=== PATIENT | male | born 1935 | race Caucasian/White ===

== ENCOUNTER 2019-03-13 16:05 | Inpatient (IN) | payer MEDICARE, MEDICAID ==
--- NOTE | 2019-03-13 16:24 | ED Physician Chart ---
ED Chief Complaint/HPI - Patient Information Date Seen:: 03/13/19 Time Seen:: 16:05 Chief Complaint:: Fever History of Present Illness:: onset x 3 days of fever, cough, and congestion; no report of trauma, H/As, S/T, neck pain, C/P, SOB, Abd. Pain, A/N/V/D/C, chills, or urinary s/s Allergies:: Allergies Allergy/AdvReac Type Severity Reaction Status Date / Time isosorbide [From Isordil] Allergy Verified 03/13/19 16:15 Historian:: Patient, EMS Review:: Nurse's Note Reviewed, Old Chart Reviewed, EMS run form Reviewed ED Review of Systems - Review of Systems General/Constitutional: Fever, No chills, No weight loss, Weakness, No diaphoresis, No edema, No loss of appetite Skin: No skin lesions, No rash, No bruising Head: No headache, No light-headedness Eyes: No loss of vision, No pain, No diplopia ENT: No earache, Nasal drainage, No sore throat, No tinnitus Neck: No neck pain, No swelling, No thyromegaly, No stiffness, No mass noted Cardio Vascular: No chest pain, No palpitations, No PND, No orthopnea, No edema Pulmonary: No SOB, Cough, No sputum, No wheezing GI: No nausea, No vomiting, No diarrhea, No pain, No melena, No hematochezia, No constipation, No hematemesis G/U: No dysuria, No frequency, No hematuria, No nacturia Musculoskeletal: No bone or joint pain, No back pain, No muscle pain Endocrine: No polyuria, No polydipsia Psychiatric: Prior psych history, Depression, Anxiety, No suicidal ideation, No homicidal ideation, No auditory hallucination, No visual hallucination Hematopoietic: No bruising, No lymphadenopathy Allergic/Immuno: No urticaria, No angioedema Neurological: No syncope, No focal symptoms, Weakness, No paresthesia, No headache, No seizure, No dizziness, Confusion, No vertigo ED Past Medical History - Past Medical History Obtainable: Yes Past Medical History: HTN, CAD, Dyslipidemia, Dementia Family History: HTN Social History: Non Smoker, No Alcohol, No Drug Use, , Care Facility Surgical History: None Psychiatricy History: Depression, Bipolar, Dementia Medication: Reviewed ED Physical Exam - Physical Examination General/Constitutional: Awake, Well-developed, well-nourished, Alert, No distress, GCS 15, Non-toxic appearing, Ambulatory Head: Atraumatic Eyes: Lids, conjuctiva normal, PERRL, EOMI Skin: Nl inspection, No rash, No skin lesions, No ecchymosis, Well hydrated, No lymphadenopathy ENMT: External ears, nose nl, TM canals nl, Nasal exam nl, Lips, teeth, gums nl , Oropharynx nl, Tonsils nl Neck: Nontender, Full ROM w/o pain, No JVD, No nuchal rigidity, No bruit, No mass, No stridor Other Neck comments:: supple; no meningeal signs; no cervical tenderness Respiratory: Nl effort/Exclusion Other Respiratory comments:: Lungs: + Rales and Rhonchi Cardio Vascular: RRR, No murmur, gallop, rubs, NL S1 S2, Carotid/Femoral/Distal pulses equal bilaterally GI: No tenderness/rebounding/guarding, No organomegaly, No hernia, Normal BS's, Nondistended, No mass/bruits, No McBurney tenderness, Rectum exam nl Other GI comments:: no pulsatile masses : No CVA tenderness Extremities: No tenderness or effusion, Full ROM, normal strength in all extremities, No edema, Normal digits & nails Neuro/Psych: Alert/oriented, DTR's symmetric, Normal sensory exam, Normal motor strength, Judgement/insight normal, Mood normal, Normal gait, No focal deficits Misc: Normal back, No paraspinal tenderness ED Labs/Radiology/EKG Results - Lab Results Comments:: Reviewed - Radiology Results Comments:: CXR: + LLL Haziness suggestive of early infiltrate - EKG Interpretations EKG Time:: 16:16 Rate & Rhythm: 65; NSR Comments:: non-specific st-t changes ED Septic Shock - . Is Septic Shock (SBP<90, OR Lactate>4 mmol\L) present?: No ED Reassessment (Disposition) - Reassessment Reassessment Condition:: Improved - Diagnosis Diagnosis:: Cough; Fever; Congestion; Hypoalbuminemia; Pneumonia; Sepsis; Hyponatremia - Aftercare/Follow up Instructions Aftercare/Follow-Up Instructions:: Counseled pt regarding lab results/diagnosis & need follow up, Counseled pt & family regarding lab results/diagnosis & need follow up - Patient Disposition Discharge/Transfer:: Acute Care w/in this hosp Accepting Physician:: Dr. Sampson Time Called:: 0645 Time Responded:: 17:30 Admitted to:: Med/Surg Spoke to:: Dr. Sampson Admitting Medical Physician:: Dr. Sampson Condition at Disposition:: Stable, Improved
[2019-03-13 16:37] LABS: % BASOPHILS 0.1 % (0.0-2.0); % EOSINOPHILS 1.5 % (0.0-5.0); % LYMPHOCYTES 13.6 % (20.0-50.0); % MONOCYTES 10.2 % (2.0-10.0); % NEUTROPHILS 74.6 % (40.0-80.0); EOSINOPHILE ABSOLUTE 0.1 Th/cmm (0.1-0.4); HEMATOCRIT 38.6 % (41.0-60); HEMOGLOBIN 12.8 gm/dL (12-16); LYMPHOCYTE ABSOLUTE 1.2 Th/cmm (1.5-3.0); MEAN CELL VOLUME 93.1 fl (80-99); MEAN CORPUSCULAR HEMOGLOBIN 30.9 pg (27.0-31.0); MEAN CORPUSCULAR HGB CONC 33.2 pg (28.0-36.0); MEAN PLATELET VOLUME 6.1 fl; MONOCYTE ABSOLUTE 0.9 Th/cmm (0.3-1.0); NEUTROPHILE ABSOLUTE 6.7 Th/cmm (1.8-8.0); PLATELET COUNT 195 Th/cmm (150-400); RED BLOOD COUNT 4.14 Mil/cmm (3.80-5.80); RED CELL DISTRIBUTION WIDTH 13.3 % (11.5-20.0); WHITE BLOOD COUNT 8.9 Th/cmm (4.8-10.8)
[2019-03-13 16:51] LABS: PROTHROMBIN TIME (TEST) 10.4 SECONDS (9.5-11.5)
[2019-03-13 16:52] LABS: ALB/GLOB RATIO 1.1 (1.0-1.8); ALBUMIN 3.5 gm/dL (4.2-5.5); ALKALINE PHOSPHATASE 81 U/L (34-104); ANION GAP 11.3 (7.0-16.0); BILIRUBIN,TOTAL 0.3 mg/dL (0.3-1.0); BUN - UREA NITROGEN 17 mg/dL (7-25); CALCIUM SERUM 8.9 mg/dL (8.6-10.3); CARBON DIOXIDE 26.7 mEq/L (21.0-31.0); CHLORIDE 101 mEq/L (98-107); CREATININE KINASE 24 U/L (30-223); GLUCOSE 107 mg/dL (70-105); SGOT 15 U/L (13-39); SGPT/ALT 22 U/L (7-52); SODIUM SERUM 135 mEq/L (136-145); TOTAL PROTEIN,SERUM 6.7 gm/dL (6.0-8.3)
[2019-03-13 16:56] LABS: TROP I < 0.01 ng/mL (0.01-0.05)
[2019-03-13 17:01] LABS: URINE SOURCE MIDSTREAM
[2019-03-13 17:04] LABS: URINE BILIRUBIN NEGATIVE (NEGATIVE); URINE BLOOD NEGATIVE (NEGATIVE); URINE GLUCOSE (UA) NEGATIVE (NEGATIVE); URINE KETONE NEGATIVE (NEGATIVE); URINE LEUKOCYTE ESTERASE NEGATIVE (NEGATIVE); URINE NITRATE NEGATIVE (NEGATIVE); URINE PH 6.5 (4.6 - 8.0); URINE PROTEIN NEGATIVE (NEGATIVE)
[2019-03-13 17:08] LABS: URINE CLARITY CLEAR (CLEAR); URINE COLOR YELLOW; URINE MICROSCOPIC INDICATED? YES
[2019-03-13] MEDS ORDERED: Levofloxacin 500mg/100mL 500 MG/100 ML BAG IV ONE ×2 (17:13→17:23)
[2019-03-13 17:24] LABS: URINE BACTERIA 1+ /hpf (NONE SEEN); URINE EPITHELIAL CELLS MODERATE /lpf (FEW); URINE RBC 0-2 /hpf (0-5)
--- NOTE | 2019-03-13 23:28 | History & Physical ---
ADMIT DATE: 03/13/2019 HISTORY OF PRESENT ILLNESS: The patient came from the [facility], apparently 3 days of fever with chills, chest congestion, complaining of pleuritic pain and shortness of breath, where he was found to have pneumonia, was admitted from the ER. The patient does not have any fever, chills, rigors. No complaints of any chest pain, pleuritic pain. PAST MEDICAL HISTORY: History of hypertension, coronary artery disease, hyperlipidemia, and dementia. PHYSICAL EXAMINATION: HEAD: Normal. ENT: Normal. NECK: Supple, nontender. LUNGS: Bilateral rales. CARDIOVASCULAR SYSTEM: S1, S2 heard. ABDOMEN: Soft. Bowel sounds are heard. CENTRAL NERVOUS SYSTEM: The patient was mildly confused. LABORATORY DATA: Chest x-ray showed left lower lobe infiltrate. EKG showed a sinus rhythm and rate was 60. DIAGNOSES: Acute left lower lobe pneumonia, hypoalbuminemia, malnutrition, cough, sepsis, and hyponatremia was made. PLAN: The patient is being admitted and I will Dr. Chow for ID consult and we will also have Pulmonary consult, Dr. Sharma and I will treat with IV antibiotics and currently hyponatremia. JOB# [id number]
[2019-03-14] MEDS ORDERED: Morphine Sulfate 2 mg/mL 1mL Syr IVP PRN (00:15)
[2019-03-14] MEDS: D5-0.45NS 1,000 ML IV SCH ×2 (00:35→20:30)
[2019-03-14] MEDS: Morphine Sulfate 2 mg/mL 1mL Syr IVP PRN ×2 (00:38→18:02)
[2019-03-14] MEDS ORDERED: Guaifenesin DM 10 ML UDC PO PRN (03:48)
--- NOTE | 2019-03-14 04:21 | Consultation ---
DATE OF CONSULTATION: 03/13/2019 INFECTIOUS DISEASE CONSULTATION REFERRING PHYSICIAN: Duane Sampson M.D. REASON FOR CONSULTATION: Pneumonia. HISTORY OF PRESENT ILLNESS: The patient is an 83-year-old male with a past medical history of hypertension, coronary artery disease, hyperlipidemia, and dementia, brought to the ER for cough, congestion with fever and chills. The patient also complained of pleuritic chest pain bilaterally. It was associated with some shortness of breath. On initial evaluation, the patient's temperature was 98.7 degrees Fahrenheit and WBC count was 8900. As per the ER report, chest x-ray showed left lower lobe infiltrate. ID consult was called for further antibiotic management. Meanwhile, the patient was started on levofloxacin. PAST MEDICAL HISTORY: Includes hypertension, coronary artery disease, hyperlipidemia, and dementia. MEDICATIONS: As per medication reconciliation sheet. Antibiotic banerjee, the patient is on levofloxacin. ALLERGIES: ISOSORBIDE. SOCIAL HISTORY: The patient lives in a nursing facility. No history of smoking, alcohol, or drug use. FAMILY HISTORY: Not available. REVIEW OF SYSTEMS: GENERAL: The patient has had history of fever and chills, but afebrile since admission. HEENT: No diplopia, no photophobia, no sore throat. RESPIRATORY: The patient has cough and shortness of breath, which is improving. The patient also complains of bilateral pleuritic chest pain with cough. No wheezing. CARDIOVASCULAR: No chest pain. No palpitation. GASTROINTESTINAL: No nausea, no vomiting, no diarrhea, no constipation, and no abdominal pain. GENITOURINARY: No dysuria. No hematuria. NEUROLOGIC: No headache, no dizziness, and no focal weakness. PHYSICAL EXAMINATION: VITAL SIGNS: Current vital signs shows temperature is 98.1 degrees Fahrenheit, pulse is 64, respirations 20, and blood pressure is 125/66. GENERAL: The patient is comfortable, lying in the bed, not in acute distress. HEENT: Head is normocephalic, atraumatic. Oral cavity moist, pink tongue. NECK: Supple, no JVD, no carotid bruit. Trachea in midline. CHEST: Bilateral vesicular sounds. No crackles or wheezing. HEART: S1, S2 within normal limits. Regular rhythm. No murmur, no gallop. ABDOMEN: Soft, nontender, nondistended. Bowel sounds present. EXTREMITIES: No cyanosis, no clubbing, no edema. NEUROLOGIC: He is alert, awake, and oriented x 3. LABORATORY DATA: Current lab shows WBC count is 8900, hemoglobin is 12.8, hematocrit is 38.6, platelets are 195,000, neutrophils 75%. INR is 1.0. Sodium is 135, potassium is 4, chloride is 101, bicarbonate is 27, BUN is 17, creatinine is 1, and glucose is 107. Urinalysis is negative leukoesterase, negative nitrite, wbcs 2-5, and 1+ bacteria. IMAGING DATA: As per the ER report, chest x-ray showed left lower lobe infiltrate. The films are not available. IMPRESSION: 1. Acute onset of pneumonia. 2. History of hypertension. 3. Hyperlipidemia. 4. Coronary artery disease. 5. Dementia. RECOMMENDATIONS AND PLAN: We will continue Levaquin at this time. Give some cough medication. Thank you, Dr. Duane Sampson, for involving me in taking care of this patient. JOB# [id number]
[2019-03-14 06:11] LABS: % BASOPHILS 0.2 % (0.0-2.0); % EOSINOPHILS 1.3 % (0.0-5.0); % LYMPHOCYTES 13.1 % (20.0-50.0); % NEUTROPHILS 72.4 % (40.0-80.0); EOSINOPHILE ABSOLUTE 0.1 Th/cmm (0.1-0.4); HEMATOCRIT 37.7 % (41.0-60); HEMOGLOBIN 12.7 gm/dL (12-16); LYMPHOCYTE ABSOLUTE 1.1 Th/cmm (1.5-3.0); MEAN CELL VOLUME 91.7 fl (80-99); MEAN CORPUSCULAR HEMOGLOBIN 30.9 pg (27.0-31.0); MEAN CORPUSCULAR HGB CONC 33.7 pg (28.0-36.0); MEAN PLATELET VOLUME 6.5 fl; MONOCYTE ABSOLUTE 1.1 Th/cmm (0.3-1.0); PLATELET COUNT 169 Th/cmm (150-400); RED BLOOD COUNT 4.11 Mil/cmm (3.80-5.80); RED CELL DISTRIBUTION WIDTH 13.4 % (11.5-20.0); WHITE BLOOD COUNT 8.3 Th/cmm (4.8-10.8)
[2019-03-14 06:24] LABS: ANION GAP 10.4 (7.0-16.0); BUN - UREA NITROGEN 15 mg/dL (7-25); CALCIUM SERUM 8.7 mg/dL (8.6-10.3); CARBON DIOXIDE 27.8 mEq/L (21.0-31.0); CHLORIDE 102 mEq/L (98-107); GLUCOSE 109 mg/dL (70-105); POTASSIUM SERUM 4.2 mEq/L (3.5-5.1); SODIUM SERUM 136 mEq/L (136-145)
--- NOTE | 2019-03-14 08:41 | Diagnostic Imaging Report ---
CHEST X-RAY: AP view INDICATION: pain COMPARISON: None FINDINGS: Increased interstitial lung markings are noted with small left effusion. There is 4 mm left apical nodularity. Left mid to left lower lung zone subsegmental atelectasis versus scarring is noted. Borderline prominent heart is noted. Degenerative changes of the spine are noted. Postsurgical changes of the lumbar spine and right upper quadrant are partially seen. IMPRESSION: Increased interstitial lung markings probably due to chronic lung changes. Small left effusion is noted. Faint infiltrate of the left base cannot be excluded. 4 mm left apical nodularity between the left first and second ribs possibly due to superimposition of bronchovascular tissues or small pulmonary nodule such as a small granuloma. Recommend correlation with old exams and/or follow-up apical lordotic view for further assessment..
--- NOTE | 2019-03-14 11:13 | Internal Medicine Prog Note ---
Internal Medicine Subjective - Subjective Service Date: 03/14/19 Patient seen and examined:: with staff Patient is:: awake, verbal Patient Complaints of:: congestion, cough, SOB, other (Was complaining of chest pain upon admission.) Internal Medicine Objective - Results Result Diagrams: 03/14/19 05:50 03/14/19 05:50 Recent Labs: Laboratory Last Values WBC 8.3 Th/cmm (4.8-10.8) 03/14/19 05:50 RBC 4.11 Mil/cmm (3.80-5.80) 03/14/19 05:50 Hgb 12.7 gm/dL (12-16) 03/14/19 05:50 Hct 37.7 % (41.0-60) L 03/14/19 05:50 MCV 91.7 fl (80-99) 03/14/19 05:50 MCH 30.9 pg (27.0-31.0) 03/14/19 05:50 MCHC Differential 33.7 pg (28.0-36.0) 03/14/19 05:50 RDW 13.4 % (11.5-20.0) 03/14/19 05:50 Plt Count 169 Th/cmm (150-400) 03/14/19 05:50 MPV 6.5 fl 03/14/19 05:50 Neutrophils % 72.4 % (40.0-80.0) 03/14/19 05:50 Lymphocytes % 13.1 % (20.0-50.0) L 03/14/19 05:50 Monocytes % 13.0 % (2.0-10.0) H 03/14/19 05:50 Eosinophils % 1.3 % (0.0-5.0) 03/14/19 05:50 Basophils % 0.2 % (0.0-2.0) 03/14/19 05:50 PT 10.4 SECONDS (9.5-11.5) 03/13/19 16:20 INR 1.00 (0.5-1.4) 03/13/19 16:20 PTT (Actin FS) 27.9 SECONDS (26.0-38.0) 03/13/19 16:20 Sodium 136 mEq/L (136-145) 03/14/19 05:50 Potassium 4.2 mEq/L (3.5-5.1) 03/14/19 05:50 Chloride 102 mEq/L (98-107) 03/14/19 05:50 Carbon Dioxide 27.8 mEq/L (21.0-31.0) 03/14/19 05:50 Anion Gap 10.4 (7.0-16.0) 03/14/19 05:50 BUN 15 mg/dL (7-25) 03/14/19 05:50 Creatinine 1.0 mg/dL (0.7-1.3) 03/14/19 05:50 Est GFR ( Amer) TNP 03/14/19 05:50 Est GFR (Non-Af Amer) TNP 03/14/19 05:50 BUN/Creatinine Ratio 15.0 03/14/19 05:50 Glucose 109 mg/dL (70-105) H 03/14/19 05:50 Whole Bld Lactic Acid 1.30 mmol/L (0.60-1.99) 03/13/19 16:20 Calcium 8.7 mg/dL (8.6-10.3) 03/14/19 05:50 Total Bilirubin 0.3 mg/dL (0.3-1.0) 03/13/19 16:20 AST 15 U/L (13-39) 03/13/19 16:20 ALT 22 U/L (7-52) 03/13/19 16:20 Alkaline Phosphatase 81 U/L (34-104) 03/13/19 16:20 Creatine Kinase 24 U/L (30-223) L 03/13/19 16:20 Troponin I < 0.01 ng/mL (0.01-0.05) L 03/13/19 16:20 Total Protein 6.7 gm/dL (6.0-8.3) 03/13/19 16:20 Albumin 3.5 gm/dL (4.2-5.5) L 03/13/19 16:20 Globulin 3.2 gm/dL 03/13/19 16:20 Albumin/Globulin Ratio 1.1 (1.0-1.8) 03/13/19 16:20 Urine Source MIDSTREAM 03/13/19 17:00 Urine Color YELLOW 03/13/19 17:00 Urine Clarity CLEAR (CLEAR) 03/13/19 17:00 Urine pH 6.5 (4.6 - 8.0) 03/13/19 17:00 Ur Specific Young 1.010 (1.005-1.030) 03/13/19 17:00 Urine Protein NEGATIVE mg/dL (NEGATIVE) 03/13/19 17:00 Urine Glucose (UA) NEGATIVE mg/dL (NEGATIVE) 03/13/19 17:00 Urine Ketones NEGATIVE mg/dL (NEGATIVE) 03/13/19 17:00 Urine Blood NEGATIVE (NEGATIVE) 03/13/19 17:00 Urine Nitrate NEGATIVE (NEGATIVE) 03/13/19 17:00 Urine Bilirubin NEGATIVE (NEGATIVE) 03/13/19 17:00 Urine Urobilinogen 1.0 E.U./dL (0.2 - 1.0) 03/13/19 17:00 Ur Leukocyte Esterase NEGATIVE (NEGATIVE) 03/13/19 17:00 Urine RBC 0-2 /hpf (0-5) H 03/13/19 17:00 Urine WBC 2-5 /hpf (0-5) 03/13/19 17:00 Ur Epithelial Cells MODERATE /lpf (FEW) 03/13/19 17:00 Urine Bacteria 1+ /hpf (NONE SEEN) H 03/13/19 17:00 - Physical Exam Vitals and I&O: Vital Signs Temp 96.7 F 03/14/19 07:24 Pulse 75 03/14/19 07:24 Resp 20 03/14/19 08:00 BP 128/67 03/14/19 07:24 Pulse Ox 91 03/14/19 07:24 Intake & Output 03/13/19 03/14/19 03/14/19 18:59 06:59 18:59 Intake Total 100 Balance 100 Weight (lbs) 88.451 kg 88.451 kg 88.451 kg Intake: Intake, IV Amount 100 Levofloxacin 500mg/100mL 100 500 mg In 100 ml @ 100 mls/hr IV X1 ONE Rx#: [id number] Other: # Voids 1 2 # Bowel Movements 0 0 Weight Source Bedscale Bedscale Bedscale Active Medications: Current Medications Guaifenesin/Dextromethorphan (Robitussin Dm) 10 ml PO Q6HR PRN PRN Reason: Cough Stop: 05/13/19 03:47 Levofloxacin (Levaquin Pb) 500 mg in 100 mls @ 100 mls/hr IV Q24HR ED[facility]IE Stop: 05/13/19 15:59 Dextrose/Sodium Chloride (D5-0.45ns) 1,000 mls @ 50 mls/hr IV .Q20H EDDIE Stop: 05/13/19 00:59 Last Admin: 03/14/19 00:35 Dose: 50 mls/hr Morphine Sulfate (Morphine) 2 mg IVP Q4HR PRN PRN Reason: MODERATE TO SEVERE PAIN Stop: 05/13/19 00:13 Last Admin: 03/14/19 00:38 Dose: 2 mg Morphine Sulfate (Morphine) 1 mg IVP Q4HR PRN PRN Reason: MILD TO MODERATE PAIN Stop: 05/13/19 00:14 Ondansetron HCl (Zofran Odt) 4 mg PO Q6H PRN PRN Reason: Nausea / Vomiting Stop: 05/13/19 00:17 Physical Exam: 83 y/o male patient was admitted with complaints of cough,sob and chest pain. Patient was diagnosed with Pneumonia and is currently on Levaquin and on Pulmonary support. General: weak, congested, demented HEENT: NC/AT Neck: Supple, + trach Lungs: congested, rales, ronchi Cardiovascular: RRR, Normal S1 Abdomen: soft, non-tender Extremities: clear Neurological: lethargic Internal Medicine Assmt/Plan - Assessment Assessment: Acute pneumonia. History of HTN. Hyperlipidemia. Coronary Artery Disease. Dementia. - Plan Plan: Continuation of care. Monitor Vitals, Labs- CBC, CMP, Monitor Hemoglobin levels, Sputum culture and Chest x-ray. Continue present meds as directed. Respiratory treatments and Pulmonary support. Supplemental Oxygen. Aspiration precaution. Deep suctioning prn. Monitor Diet/Nutritional support. Trach care. Monitor mental status progression. Monitor behavioral health status. Pain Management prn. Physical therapy. Occupational therapy. Safety precaution. Supportive care. Fall precaution, frequent nursing rounds, and as needed restraints to prevent fall. Continue collaborating with consulting specialists, case management and nursing team. Will Monitor patient and continue current treatment plan as ordered. Nutritional Asmnt/Malnutr-PDOC - Dietary Evaluation Malnutrition Findings (Please click <Entered> for more info): see chart.
[2019-03-14] MEDS: Levofloxacin 500mg/100mL 500 MG/100 ML BAG IV SCH (15:12)
--- NOTE | 2019-03-14 22:43 | Consultation ---
DATE OF CONSULTATION: 03/14/2019 PATIENT OF: Duane Sampson MD Thank you very much Dr. Sampson for this consultation. HISTORY OF PRESENT ILLNESS: This is an 83-year-old male, intermediate resident, who presented with some cough, fever, congestion and some chills. The patient was admitted for treatment and management. The patient was found to have pneumonia on the chest x-ray, feeling a little bit better and still had some cough productive of phlegm, white. PAST MEDICAL HISTORY: As above. SOCIAL HISTORY: Denies any smoking, drinking or drug use. REVIEW OF SYSTEMS: GENERAL: Some weakness and fatigue. CARDIOVASCULAR: No chest pain or palpitation. RESPIRATORY: Some cough, no shortness of breath. GASTROINTESTINAL: No nausea or vomiting. PHYSICAL EXAMINATION: GENERAL: He is awake, alert, not in acute distress. VITAL SIGNS: Temperature is 96.7, pulse 75, respiration is 19, blood pressure 128/60 and saturation 91 to 96%. HEENT: Atraumatic and normocephalic. Pupils are equal and reactive to light and accommodation. Ears, nose and throat normal. NECK: Supple. No JVD. CHEST: There are few rhonchi in the bases and decreased breath sounds in the left base. HEART: Regular rate and rhythm. ABDOMEN: Soft and nontender. EXTREMITIES: No edema. LABORATORY DATA: WBC is 8.3, hemoglobin 12.7, hematocrit 37.7 and platelets 196. Sodium 136, potassium 4.2, BUN 15 and creatinine 1.0. IMPRESSION: 1. Pneumonia. 2. Weakness. PLAN: 1. Continue antibiotics. 2. Nebulizer treatment. 3. Follow up chest x-ray. 4. I will follow the patient with you. Thank you very much for this consultation. JOB# [id number]
[2019-03-15] MEDS: Morphine Sulfate 2 mg/mL 1mL Syr IVP PRN ×2 (00:12→20:18)
--- NOTE | 2019-03-15 08:56 | Diagnostic Imaging Report ---
CHEST X-RAY: AP view INDICATION: Shortness of breath COMPARISON: 03/13/2019 FINDINGS: Bibasal atelectasis versus infiltrates are noted. No significant effusion. Heart size is normal. IMPRESSION: Bibasal atelectasis versus infiltrates. Clinical correlation recommended.
[2019-03-15] MEDS: Levofloxacin 500mg/100mL 500 MG/100 ML BAG IV SCH (16:30)
[2019-03-15] MEDS: D5-0.45NS 1,000 ML IV SCH ×2 (16:45→17:08)
--- NOTE | 2019-03-15 19:01 | Internal Medicine Prog Note ---
Internal Medicine Subjective - Subjective Service Date: 03/15/19 Patient is:: awake, verbal Patient Complaints of:: congestion, cough, SOB, other (Was complaining of chest pain upon admission.) Internal Medicine Objective - Results Result Diagrams: 03/14/19 05:50 03/14/19 05:50 Recent Labs: Laboratory Last Values WBC 8.3 Th/cmm (4.8-10.8) 03/14/19 05:50 RBC 4.11 Mil/cmm (3.80-5.80) 03/14/19 05:50 Hgb 12.7 gm/dL (12-16) 03/14/19 05:50 Hct 37.7 % (41.0-60) L 03/14/19 05:50 MCV 91.7 fl (80-99) 03/14/19 05:50 MCH 30.9 pg (27.0-31.0) 03/14/19 05:50 MCHC Differential 33.7 pg (28.0-36.0) 03/14/19 05:50 RDW 13.4 % (11.5-20.0) 03/14/19 05:50 Plt Count 169 Th/cmm (150-400) 03/14/19 05:50 MPV 6.5 fl 03/14/19 05:50 Neutrophils % 72.4 % (40.0-80.0) 03/14/19 05:50 Lymphocytes % 13.1 % (20.0-50.0) L 03/14/19 05:50 Monocytes % 13.0 % (2.0-10.0) H 03/14/19 05:50 Eosinophils % 1.3 % (0.0-5.0) 03/14/19 05:50 Basophils % 0.2 % (0.0-2.0) 03/14/19 05:50 PT 10.4 SECONDS (9.5-11.5) 03/13/19 16:20 INR 1.00 (0.5-1.4) 03/13/19 16:20 PTT (Actin FS) 27.9 SECONDS (26.0-38.0) 03/13/19 16:20 Sodium 136 mEq/L (136-145) 03/14/19 05:50 Potassium 4.2 mEq/L (3.5-5.1) 03/14/19 05:50 Chloride 102 mEq/L (98-107) 03/14/19 05:50 Carbon Dioxide 27.8 mEq/L (21.0-31.0) 03/14/19 05:50 Anion Gap 10.4 (7.0-16.0) 03/14/19 05:50 BUN 15 mg/dL (7-25) 03/14/19 05:50 Creatinine 1.0 mg/dL (0.7-1.3) 03/14/19 05:50 Est GFR ( Amer) TNP 03/14/19 05:50 Est GFR (Non-Af Amer) TNP 03/14/19 05:50 BUN/Creatinine Ratio 15.0 03/14/19 05:50 Glucose 109 mg/dL (70-105) H 03/14/19 05:50 Whole Bld Lactic Acid 1.30 mmol/L (0.60-1.99) 03/13/19 16:20 Calcium 8.7 mg/dL (8.6-10.3) 03/14/19 05:50 Total Bilirubin 0.3 mg/dL (0.3-1.0) 03/13/19 16:20 AST 15 U/L (13-39) 03/13/19 16:20 ALT 22 U/L (7-52) 03/13/19 16:20 Alkaline Phosphatase 81 U/L (34-104) 03/13/19 16:20 Creatine Kinase 24 U/L (30-223) L 03/13/19 16:20 Troponin I < 0.01 ng/mL (0.01-0.05) L 03/13/19 16:20 Total Protein 6.7 gm/dL (6.0-8.3) 03/13/19 16:20 Albumin 3.5 gm/dL (4.2-5.5) L 03/13/19 16:20 Globulin 3.2 gm/dL 03/13/19 16:20 Albumin/Globulin Ratio 1.1 (1.0-1.8) 03/13/19 16:20 Urine Source MIDSTREAM 03/13/19 17:00 Urine Color YELLOW 03/13/19 17:00 Urine Clarity CLEAR (CLEAR) 03/13/19 17:00 Urine pH 6.5 (4.6 - 8.0) 03/13/19 17:00 Ur Specific [place] 1.010 (1.005-1.030) 03/13/19 17:00 Urine Protein NEGATIVE mg/dL (NEGATIVE) 03/13/19 17:00 Urine Glucose (UA) NEGATIVE mg/dL (NEGATIVE) 03/13/19 17:00 Urine Ketones NEGATIVE mg/dL (NEGATIVE) 03/13/19 17:00 Urine Blood NEGATIVE (NEGATIVE) 03/13/19 17:00 Urine Nitrate NEGATIVE (NEGATIVE) 03/13/19 17:00 Urine Bilirubin NEGATIVE (NEGATIVE) 03/13/19 17:00 Urine Urobilinogen 1.0 E.U./dL (0.2 - 1.0) 03/13/19 17:00 Ur Leukocyte Esterase NEGATIVE (NEGATIVE) 03/13/19 17:00 Urine RBC 0-2 /hpf (0-5) H 03/13/19 17:00 Urine WBC 2-5 /hpf (0-5) 03/13/19 17:00 Ur Epithelial Cells MODERATE /lpf (FEW) 03/13/19 17:00 Urine Bacteria 1+ /hpf (NONE SEEN) H 03/13/19 17:00 - Physical Exam Vitals and I&O: Vital Signs Temp 97.3 F 03/15/19 15:32 Pulse 74 03/15/19 15:32 Resp 18 03/15/19 16:16 BP 129/65 03/15/19 15:32 Pulse Ox 99 03/15/19 15:32 Intake & Output 03/15/19 03/15/19 03/16/19 06:59 18:59 06:59 Intake Total 5431.971 2030 Balance 3495.430 5517 Weight (lbs) 195 lb 195 lb Intake: Intake, IV Amount 839.043 8615 D5-0.45NS 1,000 ml @ 50 232.526 2974 mls/hr IV .Q20H [facility] Rx#: [id number] Oral 300 700 Other: # Voids 2 3 # Bowel Movements 0 Weight Source Bedscale Bedscale Active Medications: Current Medications Donepezil HCl (Aricept) 5 mg PO DAILY EDDIE Stop: 05/14/19 08:59 Last Admin: 03/15/19 09:43 Dose: 5 mg Guaifenesin/Dextromethorphan (Robitussin Dm) 10 ml PO Q6HR PRN PRN Reason: Cough Stop: 05/13/19 03:47 Levofloxacin (Levaquin Pb) 500 mg in 100 mls @ 100 mls/hr IV Q24HR [facility]DIE Stop: 05/13/19 15:59 Last Admin: 03/15/19 16:30 Dose: 100 mls/hr Dextrose/Sodium Chloride (D5-0.45ns) 1,000 mls @ 50 mls/hr IV .Q20H EDDIE Stop: 05/13/19 00:59 Last Admin: 03/15/19 16:45 Dose: 50 mls/hr Morphine Sulfate (Morphine) 2 mg IVP Q4HR PRN PRN Reason: MODERATE TO SEVERE PAIN Stop: 05/13/19 00:13 Last Admin: 03/15/19 00:12 Dose: 2 mg Morphine Sulfate (Morphine) 1 mg IVP Q4HR PRN PRN Reason: MILD TO MODERATE PAIN Stop: 05/13/19 00:14 Ondansetron HCl (Zofran Odt) 4 mg PO Q6H PRN PRN Reason: Nausea / Vomiting Stop: 05/13/19 00:17 Quetiapine Fumarate (Seroquel) 50 mg PO HS [facility]; Protocol Stop: 05/13/19 20:59 Sertraline HCl (Zoloft) 150 mg PO DAILY [facility]; Protocol Stop: 05/14/19 08:59 Last Admin: 03/15/19 09:44 Dose: 150 mg Simvastatin (Zocor) 40 mg PO QPM [facility]; Protocol Stop: 05/14/19 16:59 Last Admin: 03/15/19 16:24 Dose: 40 mg General: weak, congested, demented HEENT: NC/AT Neck: Supple, + trach Lungs: congested, rales, ronchi Cardiovascular: RRR, Normal S1 Abdomen: soft, non-tender Extremities: clear Neurological: lethargic Internal Medicine Assmt/Plan - Assessment Assessment: Acute pneumonia. History of HTN. Hyperlipidemia. Coronary Artery Disease. Dementia - Plan Plan: continue ivabx continue current plan of care
--- NOTE | 2019-03-16 04:46 | Progress Notes ---
DATE: 03/15/2019 SUBJECTIVE: The patient appears to be doing okay. He feels better, less congestion and cough. PHYSICAL EXAMINATION: VITAL SIGNS: Temperature 97.3, pulse 80, respirations 20, blood pressure 129/65, and saturation 97%. CHEST: Good breath sounds. No wheezing or crackles. HEART: Regular rate and rhythm. ABDOMEN: Soft and nontenderness. EXTREMITIES: No edema. IMPRESSION: 1. Acute bronchitis. 2. Bronchospasm. 3. Pneumonia. 4. Weakness. PLAN: 1. Continue nebulized treatment. 2. Antibiotics. 3. Supportive care. JOB# [id number]
[2019-03-16] MEDS: D5-0.45NS 1,000 ML IV SCH (12:29)
--- NOTE | 2019-03-16 14:43 | Infectious Disease Prog Note ---
Infectious Disease Subjective - Review of Systems Service Date: 03/16/19 Subjective: doing well. no fever. Infectious Disease Objective - Results Result Diagrams: 03/14/19 05:50 03/14/19 05:50 Recent Labs: Laboratory Last Values WBC 8.3 Th/cmm (4.8-10.8) 03/14/19 05:50 RBC 4.11 Mil/cmm (3.80-5.80) 03/14/19 05:50 Hgb 12.7 gm/dL (12-16) 03/14/19 05:50 Hct 37.7 % (41.0-60) L 03/14/19 05:50 MCV 91.7 fl (80-99) 03/14/19 05:50 MCH 30.9 pg (27.0-31.0) 03/14/19 05:50 MCHC Differential 33.7 pg (28.0-36.0) 03/14/19 05:50 RDW 13.4 % (11.5-20.0) 03/14/19 05:50 Plt Count 169 Th/cmm (150-400) 03/14/19 05:50 MPV 6.5 fl 03/14/19 05:50 Neutrophils % 72.4 % (40.0-80.0) 03/14/19 05:50 Lymphocytes % 13.1 % (20.0-50.0) L 03/14/19 05:50 Monocytes % 13.0 % (2.0-10.0) H 03/14/19 05:50 Eosinophils % 1.3 % (0.0-5.0) 03/14/19 05:50 Basophils % 0.2 % (0.0-2.0) 03/14/19 05:50 PT 10.4 SECONDS (9.5-11.5) 03/13/19 16:20 INR 1.00 (0.5-1.4) 03/13/19 16:20 PTT (Actin FS) 27.9 SECONDS (26.0-38.0) 03/13/19 16:20 Sodium 136 mEq/L (136-145) 03/14/19 05:50 Potassium 4.2 mEq/L (3.5-5.1) 03/14/19 05:50 Chloride 102 mEq/L (98-107) 03/14/19 05:50 Carbon Dioxide 27.8 mEq/L (21.0-31.0) 03/14/19 05:50 Anion Gap 10.4 (7.0-16.0) 03/14/19 05:50 BUN 15 mg/dL (7-25) 03/14/19 05:50 Creatinine 1.0 mg/dL (0.7-1.3) 03/14/19 05:50 Est GFR ( Amer) TNP 03/14/19 05:50 Est GFR (Non-Af Amer) TNP 03/14/19 05:50 BUN/Creatinine Ratio 15.0 03/14/19 05:50 Glucose 109 mg/dL (70-105) H 03/14/19 05:50 Whole Bld Lactic Acid 1.30 mmol/L (0.60-1.99) 03/13/19 16:20 Calcium 8.7 mg/dL (8.6-10.3) 03/14/19 05:50 Total Bilirubin 0.3 mg/dL (0.3-1.0) 03/13/19 16:20 AST 15 U/L (13-39) 03/13/19 16:20 ALT 22 U/L (7-52) 03/13/19 16:20 Alkaline Phosphatase 81 U/L (34-104) 03/13/19 16:20 Creatine Kinase 24 U/L (30-223) L 03/13/19 16:20 Troponin I < 0.01 ng/mL (0.01-0.05) L 03/13/19 16:20 Total Protein 6.7 gm/dL (6.0-8.3) 03/13/19 16:20 Albumin 3.5 gm/dL (4.2-5.5) L 03/13/19 16:20 Globulin 3.2 gm/dL 03/13/19 16:20 Albumin/Globulin Ratio 1.1 (1.0-1.8) 03/13/19 16:20 Urine Source MIDSTREAM 03/13/19 17:00 Urine Color YELLOW 03/13/19 17:00 Urine Clarity CLEAR (CLEAR) 03/13/19 17:00 Urine pH 6.5 (4.6 - 8.0) 03/13/19 17:00 Ur Specific [place] 1.010 (1.005-1.030) 03/13/19 17:00 Urine Protein NEGATIVE mg/dL (NEGATIVE) 03/13/19 17:00 Urine Glucose (UA) NEGATIVE mg/dL (NEGATIVE) 03/13/19 17:00 Urine Ketones NEGATIVE mg/dL (NEGATIVE) 03/13/19 17:00 Urine Blood NEGATIVE (NEGATIVE) 03/13/19 17:00 Urine Nitrate NEGATIVE (NEGATIVE) 03/13/19 17:00 Urine Bilirubin NEGATIVE (NEGATIVE) 03/13/19 17:00 Urine Urobilinogen 1.0 E.U./dL (0.2 - 1.0) 03/13/19 17:00 Ur Leukocyte Esterase NEGATIVE (NEGATIVE) 03/13/19 17:00 Urine RBC 0-2 /hpf (0-5) H 03/13/19 17:00 Urine WBC 2-5 /hpf (0-5) 03/13/19 17:00 Ur Epithelial Cells MODERATE /lpf (FEW) 03/13/19 17:00 Urine Bacteria 1+ /hpf (NONE SEEN) H 03/13/19 17:00 - Physical Exam Vitals and I&O: Vital Signs Temp 97.6 F 03/16/19 11:36 Pulse 98 03/16/19 11:36 Resp 18 03/16/19 11:36 BP 135/69 03/16/19 11:36 Pulse Ox 98 03/16/19 11:36 Intake & Output 03/15/19 03/16/19 03/16/19 18:59 06:59 18:59 Intake Total 1700 100 925 Balance 1700 100 925 Weight (lbs) 88.451 kg 88.451 kg Intake: Intake, IV Amount 1000 925 D5-0.45NS 1,000 ml @ 50 1000 925 mls/hr IV .Q20H [facility] Rx#: [id number] Oral 700 100 Other: # Voids 3 2 # Bowel Movements 1 Weight Source Bedscale Bedscale Active Medications: Current Medications Donepezil HCl (Aricept) 5 mg PO DAILY EDDIE Stop: 05/14/19 08:59 Last Admin: 03/16/19 08:19 Dose: 5 mg Guaifenesin/Dextromethorphan (Robitussin Dm) 10 ml PO Q6HR PRN PRN Reason: Cough Stop: 05/13/19 03:47 Levofloxacin (Levaquin Pb) 500 mg in 100 mls @ 100 mls/hr IV Q24HR EDDIE Stop: 05/13/19 15:59 Last Admin: 03/15/19 16:30 Dose: 100 mls/hr Dextrose/Sodium Chloride (D5-0.45ns) 1,000 mls @ 50 mls/hr IV .Q20H EDDIE Stop: 05/13/19 00:59 Last Admin: 03/16/19 12:29 Dose: 50 mls/hr Morphine Sulfate (Morphine) 2 mg IVP Q4HR PRN PRN Reason: MODERATE TO SEVERE PAIN Stop: 05/13/19 00:13 Last Admin: 03/15/19 20:18 Dose: 2 mg Morphine Sulfate (Morphine) 1 mg IVP Q4HR PRN PRN Reason: MILD TO MODERATE PAIN Stop: 05/13/19 00:14 Ondansetron HCl (Zofran Odt) 4 mg PO Q6H PRN PRN Reason: Nausea / Vomiting Stop: 05/13/19 00:17 Quetiapine Fumarate (Seroquel) 50 mg PO HS [facility]; Protocol Stop: 05/13/19 20:59 Last Admin: 03/15/19 20:17 Dose: 50 mg Sertraline HCl (Zoloft) 150 mg PO DAILY [facility]; Protocol Stop: 05/14/19 08:59 Last Admin: 03/16/19 08:19 Dose: 150 mg Simvastatin (Zocor) 40 mg PO QPM [facility]; Protocol Stop: 05/14/19 16:59 Last Admin: 03/15/19 16:24 Dose: 40 mg General: no acute distress, well developed HEENT: atraumatic, normocephalic, PERRLA Neck: supple, no thyromegaly Cardiovascular: S1S2, regular Lungs: clear to auscultation bilaterally, clear to percussion Abdomen: soft, no tender, no distended, no mass, no bowel sounds Extremities: no cyanosis, no clubbing, no edema, no AVF/AVG Neurological: awake, alert, oriented Skin: intact Infectious Disease Assmt/Plan - Assessment Assessment: 1. Acute onset of pneumonia. 2. History of hypertension. 3. Hyperlipidemia. 4. Coronary artery disease. 5. Dementia. - Plan Plan: Continue levaquin po for 5 days
--- NOTE | 2019-03-17 08:40 | Progress Notes ---
DATE: 03/16/2019 SUBJECTIVE: The patient appears to be doing okay, in no distress. OBJECTIVE: VITAL SIGNS: Temperature 97.6, pulse 90, respirations 18, blood pressure 135/69, saturation 90%. HEENT: Atraumatic. CHEST: Good breath sounds. No wheezing or crackles. HEART: Regular rate and rhythm. ABDOMEN: Soft, no tenderness. EXTREMITIES: No edema. IMPRESSION: 1. Respiratory failure. 2. Pneumonia. 3. Weakness. 4. Bronchospasm. PLAN: Continue supportive care, nebulizer treatment, discharge planning for today. JOB# [id number] MTDD
--- NOTE | 2019-03-26 12:41 | Discharge Summary ---
DATE OF DISCHARGE: 03/16/2019 The patient was admitted to [facility] on 03/13/2019, was discharged to [place] [facility] on 03/16/2019. HOSPITAL COURSE: The patient was admitted because the patient has recurrent chest pain and was complaining of pleuritic chest pain. The patient was diagnosed to have left lower lobe pneumonia, malnutrition, sepsis and hyponatremia, all of them are treated and ID doctor, Dr. Ghulam Chow saw the patient as well as Dr. Sharma, pulmonary doctor. The patient improved. The patient was in stable condition on 03/16/2019 and the patient was discharged to [facility] [facility] with antibiotics and I will follow the patient. CONDITION AT THE TIME OF DISCHARGE: Stable. [facility]# [id number]
== END 2019-03-16 15:37 | DRG 871 ==
LOC: ER 16:05 → MSI 17:32
PROVIDERS: ADMIT Internal Medicine; ATTEND Internal Medicine
DX: A41.9 Sepsis, unspecified organism (principal); J18.1 Lobar pneumonia, unspecified organism; E87.1 Hypo-osmolality and hyponatremia; E46 Unspecified protein-calorie malnutrition; I10 Essential (primary) hypertension; I25.10 Atherosclerotic heart disease of native coronary artery without angina pectoris; E78.5 Hyperlipidemia, unspecified; F03.90 Unspecified dementia, unspecified severity, without behavioral disturbance, psychotic disturbance, mood disturbance, and anxiety; J20.9 Acute bronchitis, unspecified; Z68.28 Body mass index [BMI] 28.0-28.9, adult
CPT/HCPCS: 36415-UA; 71045-TC; 80048-TC; 80053-TC; 81001-TC; 82550-TC; 83605; 84484-TC; 85025-TC; 85610-TC; 85730-TC; 93005; 94760; J1956; J2270; Z7610